=== PATIENT | female | born 1950 | race Hispanic/Latino ===

== ENCOUNTER 2018-07-04 08:44 | Emergency (ER) | payer BC, MEDICARE, OTHER ==
--- NOTE | 2018-07-04 09:02 | ED PDOC ---
Arrival/HPI - General Historian: EMS - History of Present Illness Narrative History of Present Illness (Text): 07/04/18 09:09 A 67 year old female, whose past medical history includes brain tumor, brought in by EMS to the emergency department at 08:47 for cardiac arrest. Per EMS, downtime was approximately 20 minutes. Patient was found by her in the bathroom to be unresponsive. Patient was intubated at the scene with 7.0, 25 to lip. Patient was given epi x 3. Upon arrival, the first epi given in the ER immediately on arrival and ACS protocol started. See RN Note for details. Patient was initially found to be asystole as per EMS. Here in the ER, patient remained asystole first at 08:49, then compressions administered for about 2 minutes, patient was still asystole at 08:51. Fingerstick reading 281. 08:55, compression began again after giving 2nd epi. 08:57, patient still remained asystole, and ultrasound showed no cardiac activity. Time of : 08:57. PMD: Dr. Mercado Past Medical History - Provider Review Nursing Documentation Reviewed: Yes Family/Social History - Physician Review Nursing Documentation Reviewed: Yes Family/Social History: No Known Family HX Allergies/Home Meds Allergies/Adverse Reactions: Allergies No Known Allergies Allergy (Verified 07/04/18 10:04) Physical Exam Temperature: Afebrile Pulse: Pulseless Respiratory Rate: Mechanically Ventilated Appearance: Positive for: Ill-Appearing Mental Status: Positive for: Comatose - Systems Exam Pupils: Present: Non-Reactive (5mm b/l and fixed; no corneal reflex) Neck: Present: Other (blue-purplish skin discoloration showing signs of lividity) Respiratory/Chest: Present: Clear to Auscultation (with BVM ventilations), Other (good air condensation on ETT which is proper placement) Cardiovascular: No: Peripheal Pulses Present Abdomen: No: Distention Upper Extremity: No: NORMAL PULSES Lower Extremity: No: NORMAL PULSES Neurological: Present: Other (Unresponsive) Skin: Present: Cold, Pale, Other (blue-purplish skin discoloration showing signs of lividity on neck and face). No: Warm (Cold Skin) Medical Decision Making ED Course and Treatment: 07/04/18 09:35 Cardiac arrest most likely due to history of Glioblastoma Stage IV. Patient was seen immediately on arrival by me and ACS protocol was started. Epi given as per nurse documentation. ETT confirmed by me in good position with good condensation. Left Shoulder with IO in place that was checked by RN Falguni and sean. Compressions were continued with Locus. Patient had been down for just over 20 minutes as per EMS report. We treated her in the ED with no return of pulse and further treatment is futile. Patient was pronounced at 8:57. Discussed case with Dr. Mercado, who will complete certificate started by me. Organ donation called by nurse. Discussed with family, daughter and . They said they had discussed end of life care already with mom and were calling hospice today. - Critical Care Critical Care Minutes: 30 minutes - Scribe Statement The provider has reviewed the documentation as recorded by the Scribe Alexandra Lopez Provider Scribe Attestation: All medical record entries made by the Scribe were at my direction and personally dictated by me. I have reviewed the chart and agree that the record accurately reflects my personal performance of the history, physical exam, medical decision making, and the department course for this patient. I have also personally directed, reviewed, and agree with the discharge instructions and disposition. Disposition/Present on Arrival - Present on Arrival Any Indicators Present on Arrival: No - Disposition Have Diagnosis and Disposition been Completed?: Yes Diagnosis: Cardiac arrest Disposition: WITH WITHOUT AUTOPSY Disposition Time: 08:57 Condition: Referrals: FAMILY PROVIDER,NO [Primary Care Provider] - Follow up with primary
[2018-07-04 09:13] VITALS: BMI 32.3
[2018-07-04 09:14] VITALS: TEMP 97.8
[2018-07-04 11:35] VITALS: O2SAT 0
[2018-07-04 11:37] VITALS: PULSE 0
== END 2018-07-04 11:00 ==
LOC: ED 08:44
DX: I46.9 Cardiac arrest, cause unspecified (principal)